=== PATIENT | male | born 1950 | race Two or more races ===

== ENCOUNTER 2023-07-08 09:20 | Emergency (ER) | payer MEDICARE, MEDICAID ==
[~2023-07-08] VITALS: Ht 175.3 cm; Wt 98.0 kg
[2023-07-08 09:26] VITALS: O2SAT 99
[2023-07-08] MEDS ORDERED: klonopin (09:26)
[2023-07-08] MEDS ORDERED: CLON1TAB MT ×3 (11:13→12:06)
[2023-07-08 12:24] VITALS: BP 135/89; PULSE 85; RESP 20; TEMP 98.2
== END 2023-07-08 12:25 | disposition home or self-care (01) ==
LOC: ER 09:20
DX: F41.9 Anxiety disorder, unspecified (principal); Z76.0 Encounter for issue of repeat prescription; F32.A Depression, unspecified; E11.9 Type 2 diabetes mellitus without complications; F20.9 Schizophrenia, unspecified; Z88.8 Allergy status to other drugs, medicaments and biological substances
CPT/HCPCS: 99283

== ENCOUNTER 2023-08-09 16:54 | Emergency (ER) | payer MEDICARE, MEDICAID ==
[~2023-08-09] VITALS: Ht 175.3 cm; Wt 90.0 kg
[~2023-08-09 16:54] MED LIST: CLON1TAB MT; klonopin
[2023-08-09 17:04] VITALS: BP 136/81; PULSE 102; RESP 16; TEMP 98.3; O2SAT 99
[2023-08-09 17:44] LABS: BASOPHILS % 0.1 % (0.0-2.0); EOSINOPHILS % 2.9 % (0.0-5.0); LYMPHOCYTES % 27.6 % (20.0-50.0); MEAN CORPUSCULAR HEMOGLOBIN 29.1 pg (28.0-32.0); MEAN CORPUSCULAR HGB CONC 34.4 g/dL (31.0-37.0); MEAN CORPUSCULAR VOLUME 84.5 fL (80.0-94.0); MEAN PLATELET VOLUME 6.8 fl (7.4-10.4); MONOCYTES % 11.8 % (2.0-8.0); NEUTROPHILS % 57.6 % (40.0-76.0); PLATELET 333 x1000/uL (130-400); RED BLOOD CELL COUNT 4.14 mill/uL (4.7-6.1); RED CELL DISTRIBUTION WIDTH 13.7 % (11.6-14.6); WHITE BLOOD COUNT 11.3 x1000/uL (4.5-11.0)
[2023-08-09 17:54] LABS: CHLORIDE 104 mEq/L (98-107); INDEX HEMOLYSI 1 (1-3); INDEX ICTERIC 1 (1-4); INDEX LIPEMIC 1 (1-3); POTASSIUM 3.6 mEq/L (3.5-5.1); SODIUM 132 mEq/L (136-145)
[2023-08-09 17:56] LABS: PROTHROMBIN TIME 10.5 sec (9.6-11.0)
[2023-08-09 18:04] LABS: ALANINE AMINOTRANSFERASE 43 IU/L (13-61); ALBUMIN 3.7 g/dL (3.4-5.0); ASPARTATE AMINOTRANSFERASE 26 IU/L (15-37); BILIRUBIN TOTAL 0.3 mg/dL (0.1-1.0); CALCIUM 8.8 mg/dL (8.5-10.1); CARBON DIOXIDE 20 mEq/L (21-32); CREATININE 0.9 mg/dL (0.6-1.3); ETHANOL BLOOD < 10 mg/dL (<10); GLUCOSE 106 mg/dL (70-105); NT PRO B-TYPE NATRIURETIC PEP 145 pg/mL (5-125); PROTEIN TOTAL 7.4 g/dL (6.0-8.3); TROPONIN I HIGH SENSITIVITY 6 ng/L (<78); UREA NITROGEN BLOOD 11 mg/dL (7-21)
== END 2023-08-09 19:31 | disposition home or self-care (01) ==
LOC: ER 16:54
DX: R10.9 Unspecified abdominal pain (principal); G89.29 Other chronic pain; F32.9 Major depressive disorder, single episode, unspecified; E11.9 Type 2 diabetes mellitus without complications; F20.9 Schizophrenia, unspecified
CPT/HCPCS: 36415; 71045; 80053; 80320; 83880; 84484; 85025; 93005; 99285; G0480